=== PATIENT | male | born 1960 | race Caucasian/White ===

== ENCOUNTER 2018-07-22 19:18 | Emergency (ER) | payer SELFPAY ==
[~2018-07-22] VITALS: Ht 182.9 cm; Wt 97.0 kg
[2018-07-22 20:19] VITALS: BP 124/77
[2018-07-22] MEDS ORDERED: HYDR-4383 PO (20:38)
== END 2018-07-22 20:52 | disposition home or self-care (01) ==
LOC: ER 19:19
DX: K40.90 Unilateral inguinal hernia, without obstruction or gangrene, not specified as recurrent (principal); F17.200 Nicotine dependence, unspecified, uncomplicated; Z88.1 Allergy status to other antibiotic agents
CPT/HCPCS: 99283

== ENCOUNTER 2018-08-06 14:56 | Emergency (ER) | payer OTHER ==
[~2018-08-06] VITALS: Ht 185.4 cm; Wt 98.0 kg
[~2018-08-06 14:56] MED LIST: HYDR-4383 PO
[2018-08-06 15:20] VITALS: BP 116/70
== END 2018-08-06 18:06 | disposition left against medical advice (07) ==
LOC: ER 14:56
DX: K40.90 Unilateral inguinal hernia, without obstruction or gangrene, not specified as recurrent (principal); Z88.1 Allergy status to other antibiotic agents
CPT/HCPCS: 99281

== ENCOUNTER 2018-08-08 13:29 | Emergency (ER) | payer OTHER ==
[~2018-08-08] VITALS: Ht 185.4 cm; Wt 88.3 kg
[2018-08-08 14:22] VITALS: BP 118/70
--- NOTE | 2018-08-08 15:12 | NUR ---
ULTRASOUND PAGED BED 15 Addendum: 08/08/18 at 1516 by BEDDY TIME 1500
[2018-08-08] MEDS ORDERED: TRAM50TA2 PO (15:31)
[2018-08-08] MEDS ORDERED: traMADol 50MG tablet PO ONE (15:35)
== END 2018-08-08 15:56 | disposition home or self-care (01) ==
LOC: ER 13:29
DX: K40.90 Unilateral inguinal hernia, without obstruction or gangrene, not specified as recurrent (principal); Z88.8 Allergy status to other drugs, medicaments and biological substances; Z79.899 Other long term (current) drug therapy
CPT/HCPCS: 99283

== ENCOUNTER 2018-08-30 14:59 | Emergency (ER) | payer MEDICAID, OTHER ==
[~2018-08-30] VITALS: Ht 185.4 cm; Wt 99.0 kg
[~2018-08-30 14:59] MED LIST changes: +TRAM50TA2 PO
[2018-08-30 15:06] VITALS: BP 120/71
[2018-08-30] MEDS ORDERED: HYDROcodone/acetaminophen 5mg/325mg tablet PO ONE (15:45)
== END 2018-08-30 16:06 | disposition home or self-care (01) ==
LOC: ER 15:00
DX: Z88.1 Allergy status to other antibiotic agents (principal); Z79.899 Other long term (current) drug therapy
CPT/HCPCS: 99282

== ENCOUNTER 2018-09-29 11:12 | Emergency (ER) | payer MEDICAID ==
[~2018-09-29] VITALS: Ht 185.4 cm; Wt 102.0 kg
[~2018-09-29 11:12] MED LIST changes: +HYDR-3965 PO; -TRAM50TA2 PO
[2018-09-29 11:41] VITALS: BP 138/74
[2018-09-29] MEDS ORDERED: IBUP-1984 PO (12:06)
== END 2018-09-29 12:20 | disposition home or self-care (01) ==
LOC: ER 11:13
DX: K40.90 Unilateral inguinal hernia, without obstruction or gangrene, not specified as recurrent (principal); Z76.0 Encounter for issue of repeat prescription; Z88.1 Allergy status to other antibiotic agents
CPT/HCPCS: 99282